=== PATIENT | female | born 1945 | race Caucasian/White ===

== ENCOUNTER → 2016-07-16 | Outpatient (CLI) | payer MEDICARE ==
--- NOTE | 2016-07-16 14:07 | REPMRS ---
Patient History The patient states she had a clinical breast exam in Patient is postmenopausal, has history of breast cancer at age 69, has history of other cancer at age 60, and had first child at age 33. Family history of breast cancer in maternal aunt at age 50 or over and colorectal cancer in maternal uncle at age 50 or over. Malignant radio exam breast specimen, June 17, 2015. Malignant localization of breast nodule of the right breast, June 17, 2015. Benign excisional biopsy of the left breast, 2002. Benign excisional biopsy of the left breast, 1965. Benign excisional biopsy of the right breast, 1964. Digital Woman Screen Mammo: July 16, 2016 - Exam #: [id number] Bilateral CC and MLO view(s) were taken. Technologist: Jennifer Bernard, Technologist Prior study comparison: December 16, 2015, right breast digital mammo diagnostic unilateral, performed at [facility]. May 10, 2015, right breast digital mammo diagnostic unilateral, performed at [facility]. May 07, 2015, digital woman screen mammo performed at [facility]. FINDINGS: There are scattered fibroglandular densities. There has been no change in the appearance of the mammogram from the prior studies. There are stable post treatment changes in the right breast..The spiculated density at the biopsy site in the upper outer quadrant of the right breast has decreased in the interval since the last right breast mammogram from December 16, 2015. There is a mild amount of scattered fibroglandular density which is fairly symmetric. There is no interval development of dominant mass, architectural distortion, or clustered microcalcification suggestive of malignancy. ASSESSMENT: BI-RADS/ACR category 1 mammogram. Negative. Recommendation Routine screening mammogram in 1 year (for women over age 40). This mammogram was interpreted with the aid of an FDA-approved computer-aided dectection system. Electronically Signed By: Luis Reynolds MD 07/16/16 0981
== END ==
LOC: M WHC 12:54
PROVIDERS: ATTEND Nurse Practitioner Family
DX: Z01.419 Encounter for gynecological examination (general) (routine) without abnormal findings (principal); Z12.31 Encounter for screening mammogram for malignant neoplasm of breast; Z78.0 Asymptomatic menopausal state; Z12.12 Encounter for screening for malignant neoplasm of rectum; Z85.3 Personal history of malignant neoplasm of breast
CPT/HCPCS: 82270; G0101; G0202

== ENCOUNTER → 2016-10-21 | Outpatient (CLI) | payer MEDICARE ==
--- NOTE | 2016-10-21 13:55 | RADONC ---
RADIATION ONCOLOGY FOLLOWUP NOTE DATE: 10/21/2016 CHART NUMBER: [id number] DIAGNOSIS: Right breast cancer. STAGE: IA, C2zA5T6. ECOG PERFORMANCE STATUS: 0 FOLLOWUP NOTE: Ms. 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 The patient presents today reporting that she is doing quite well with no complaints at this time related to her radiation therapy or disease. She has no breast or bone pain. REVIEW OF SYSTEMS: The patient's review of systems is noncontributory. She denies nausea, vomiting, fevers, chills, night sweats, diplopia, headaches, anxiety or depression, anorexia, weight loss, visual disturbances, chest pain, urinary or bowel difficulties, bone pain, or neurological problems. PHYSICAL EXAMINATION: The patient is a well-developed, well-nourished white female in no acute distress. HEENT exam is normocephalic, atraumatic. Extraocular movements are intact. There is no palpable cervical, supraclavicular, infraclavicular, axillary, or inguinal lymphadenopathy present. Lungs are clear to auscultation and percussion. Heart has a regular rate and rhythm. Abdomen is benign with no hepatosplenomegaly, masses, or tenderness. Breast examination reveals no masses or discharge bilaterally. Skeletal examination reveals no tenderness to pressure or percussion of the bony skeleton. Extremities reveal no clubbing, cyanosis, or edema. Neurologic exam is grossly intact, as is the remainder of the physical examination. ASSESSMENT: The patient is clinically NANCY at this time and will be seen by us again in 6 months for further followup. She will also continue be followed by her other physicians as well. cc: Jhon Sanderson MD *NOE Flores
== END ==
LOC: M ONCR 13:15
PROVIDERS: ATTEND Radiology Radiation Oncology
DX: C50.411 Malignant neoplasm of upper-outer quadrant of right female breast (principal)

== ENCOUNTER → 2017-04-21 | Outpatient (CLI) | payer MEDICARE ==
--- NOTE | 2017-04-23 06:40 | RADONC ---
RADIATION ONCOLOGY FOLLOWUP NOTE DATE: 04/21/2017 CHART NUMBER: [id number] DIAGNOSIS: Right breast cancer. STAGE: I A, TcN0M0. ECOG PERFORMANCE STATUS: 0. FOLLOWUP NOTE: Ms. 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 The patient presents today reporting that she is doing quite well with no complaints at this time related to her radiation therapy or disease. She has no breast or bone pain. REVIEW OF SYSTEMS: The patient's review of systems is noncontributory. Denies nausea, vomiting, fevers, chills, night sweats, diplopia, headaches, anxiety or depression, anorexia, weight loss, visual disturbances, chest pain, urinary or bowel difficulties, bone pain, or neurological problems. PHYSICAL EXAMINATION: The patient is a well-developed, well-nourished, 71-year-old female in no acute distress. HEENT exam is normocephalic, atraumatic. Extraocular movements are intact. There is no palpable cervical, supraclavicular, infraclavicular, axillary, or inguinal lymphadenopathy present. Lungs are clear to auscultation and percussion. Heart has a regular rate and rhythm. Abdomen is benign with no hepatosplenomegaly, masses, or tenderness. Breast examination reveals no masses or discharge bilaterally. Skeletal examination reveals no tenderness to pressure or percussion of the bony skeleton. Extremities reveal no clubbing, cyanosis, or edema. Neurologic exam is grossly intact, as is the remainder of the physical examination. ASSESSMENT: The patient is clinically NANCY at this time and will be seen by us again in 6 months for further followup. She will also continue be followed by her other physicians as well. cc: Shonda Sanderson MD
== END ==
LOC: M ONCR 12:54
PROVIDERS: ATTEND Radiology Radiation Oncology
DX: C50.411 Malignant neoplasm of upper-outer quadrant of right female breast (principal)

== ENCOUNTER → 2017-08-26 | Outpatient (CLI) | payer MEDICARE | LOC: M WHC 10:29 | DX: Z12.31 Encounter for screening mammogram for malignant neoplasm of breast (principal); Z01.419 Encounter for gynecological examination (general) (routine) without abnormal findings (principal); Z78.0 Asymptomatic menopausal state; Z85.3 Personal history of malignant neoplasm of breast; Z12.12 Encounter for screening for malignant neoplasm of rectum; Z98.890 Other specified postprocedural states | CPT/HCPCS: 77067 ==

== ENCOUNTER → 2017-09-22 | Outpatient (CLI) | payer MEDICARE | LOC: M ONCR 14:31 | DX: C50.411 Malignant neoplasm of upper-outer quadrant of right female breast (principal) | CPT/HCPCS: G0463 ==

== ENCOUNTER → 2018-03-16 | Outpatient (CLI) | payer MEDICARE | LOC: M ONCR 12:49 | DX: C50.911 Malignant neoplasm of unspecified site of right female breast (principal) | CPT/HCPCS: G0463 ==

== ENCOUNTER 2018-03-28 09:58 | Day surgery (SDC) | payer MEDICARE ==
[~2018-03-28 09:58] MED LIST: LIDOCAINE 2% INJ 100 MG/5 ML SDV (FOR ANES.) As Ordered; NS 1,000 ML IV; PROPOFOL 200 MG/20 ML VIAL As Ordered
== END 2018-03-28 12:51 | disposition home or self-care (01) ==
LOC: M OPP 09:58
DX: Z12.11 Encounter for screening for malignant neoplasm of colon (principal); K55.20 Angiodysplasia of colon without hemorrhage; K64.0 First degree hemorrhoids; K57.30 Diverticulosis of large intestine without perforation or abscess without bleeding; R13.10 Dysphagia, unspecified; R12 Heartburn; K22.2 Esophageal obstruction; K44.9 Diaphragmatic hernia without obstruction or gangrene; R00.8 Other abnormalities of heart beat; I10 Essential (primary) hypertension; E78.5 Hyperlipidemia, unspecified; K21.9 Gastro-esophageal reflux disease without esophagitis; M19.90 Unspecified osteoarthritis, unspecified site; Z85.828 Personal history of other malignant neoplasm of skin; Z92.21 Personal history of antineoplastic chemotherapy; F32.9 Major depressive disorder, single episode, unspecified; Z78.0 Asymptomatic menopausal state; Z92.3 Personal history of irradiation; Z85.3 Personal history of malignant neoplasm of breast; Z87.442 Personal history of urinary calculi; Z88.1 Allergy status to other antibiotic agents; Z88.5 Allergy status to narcotic agent; Z79.82 Long term (current) use of aspirin; Z79.899 Other long term (current) drug therapy
CPT/HCPCS: G0121

== ENCOUNTER → 2018-09-21 | Outpatient (CLI) | payer MEDICARE ==
[~2018-09-21] MED LIST changes: +ALEV220T26 PO; +ALLE180T33 PO; +ASPI81TA26 PO; +EYESOL4 OU; +FLUTISP; +LETR2.5T2 PO; -LIDOCAINE 2% INJ 100 MG/5 ML SDV (FOR ANES.) As Ordered; +MELA10CA PO; +MULT1TAB10 PO; -NS 1,000 ML IV; +PRIL20TA2 PO; -PROPOFOL 200 MG/20 ML VIAL As Ordered; +SERT-141 PO; +SIMV40TA2 PO; +SYST1SOL OU; +TOLT2TAB12 PO; +VENTAER INH; +VERA180T3 PO
--- NOTE | 2018-09-22 07:28 | RADONC ---
RADIATION ONCOLOGY FOLLOWUP NOTE: DATE: 09/21/2018 CHART NUMBER: [id number]. DIAGNOSIS: Right breast cancer. STAGE: I A, T1c N0 M0. ECOG PERFORMANCE STATUS: 0 The patient is a ramandeep 72-year-old female who has a diagnosis of stage I A, T1c N0 M0, moderately to well differentiated infiltrating ductal carcinoma involving the right breast and presents today for a routine followup visit 3 years following external beam radiotherapy. REVIEW OF SYSTEMS: The patient is doing well and has no complaints referable to her disease or to her treatments. She specifically denies any nausea, vomiting, coughing, sputum production or hemoptysis. Her energy level is excellent. She is able to maintain most for day-to-day activities without any alteration of her lifestyle. She also denies fevers, chills, night sweats, diplopia, headaches, anxiety, depression, anorexia, weight loss, visual disturbances, chest pain, urinary or bowel problems, bone pain or neurologic issues. Physical examination reveals a well-nourished 72-year-old female in no acute distress. HEENT: Normocephalic. EOMs intact. PERRLA. Fundi benign. LYMPHATICS: No palpable peripheral lymphadenopathy is appreciated. LUNGS: Lungs are clear to auscultation and percussion. HEART: Regular without murmurs. ABDOMEN: Without evidence of hepatomegaly, masses, deep abdominal tenderness. BREASTS: Examination reveals no masses or discharges bilaterally. MUSCULOSKELETAL: Skeletal system reveals no evidence of percussive bony tenderness. EXTREMITIES: Without cyanosis, clubbing or edema. NEUROLOGIC: Examination grossly physiologic and nonfocal. IMPRESSION: The patient is clinically NANCY at this time and we will see her again in approximately 6 months or p.r.n. for further followup. She was also advised to return to her referring physicians as per their directions and instructions. Thank you for allowing us the opportunity of participation in the joint followup care of this very ramandeep patient. Most sincerely, cc: Shonda Sanderson MD
== END ==
LOC: M ONCR 12:55
PROVIDERS: ATTEND Radiology Radiation Oncology
DX: Z08 Encounter for follow-up examination after completed treatment for malignant neoplasm (principal); Z92.3 Personal history of irradiation; Z85.3 Personal history of malignant neoplasm of breast

== ENCOUNTER → 2018-09-28 | Outpatient (CLI) | payer MEDICARE ==
--- NOTE | 2018-09-28 12:02 | REPMRS ---
Patient History The patient states she had a clinical breast exam in September 2018. Family history of colorectal cancer at age 50 or over in maternal uncle, breast cancer at age 50 or over in maternal aunt. Malignant radio exam breast specimen, June 17, 2015. Malignant localization of breast nodule of the right breast, June 17, 2015. Benign excisional biopsy of the left breast, 2002. Benign excisional biopsy of the left breast, 1964. Benign excisional biopsy of the right breast, 1963. 3D TOMOSYNTHESIS WAS PERFORMED. Digital Mammo Screening Bilat: September 28, 2018 - Exam #: [id number] Bilateral CC and MLO view(s) were taken. Technologist: Teresita Pink, Technologist Prior study comparison: August 26, 2017, digital woman screen mammo, performed at [facility]. July 16, 2016, digital woman screen mammo, performed at [facility]. FINDINGS: The breast tissue is heterogeneously dense. This may lower the sensitivity of mammography. There is no evidence of cancer on this mammogram. No significant changes when compared with prior studies. Assessment: BI-RADS/ACR category 2 mammogram. Benign Findings. Recommendation Routine screening mammogram of both breasts in 1 year (for women over age 40). This mammogram was interpreted with the aid of an FDA-approved computer-aided dectection system. Electronically Signed By: Eric Gonzalez MD 09/28/18 0546
== END ==
LOC: M RAD 11:04
PROVIDERS: ATTEND Radiology Radiation Oncology
DX: Z12.31 Encounter for screening mammogram for malignant neoplasm of breast (principal); Z85.3 Personal history of malignant neoplasm of breast

== ENCOUNTER → 2019-03-29 | Outpatient (CLI) | payer MEDICARE ==
--- NOTE | 2019-03-30 09:35 | RADONC ---
RADIATION ONCOLOGY FOLLOWUP NOTE DATE: 03/29/2019 CHART NUMBER: [id number] DIAGNOSIS: Right breast cancer. ECOG PERFORMANCE STATUS: 0 FOLLOWUP NOTE: Mrs. Olivarez is a 72-year-old female with a diagnosis of stage I A, [id number], moderately to well differentiated infiltrating ductal carcinoma involving the right breast and she presents today for routine followup visit 3-1/2 years following her external beam radiotherapy. REVIEW OF SYSTEMS: She has no complaints referable to her disease or to her treatments, and specifically denies any nausea, vomiting, coughing, sputum production or hemoptysis. Her energy level is such that she is able to maintain most of her for day-to-day activities without any alteration of her lifestyle and she does not complain of any bone pain. She also denies fevers, chills, night sweats, diplopia, headaches, anxiety, depression, anorexia, weight loss, visual disturbances or other neurologic issues. PHYSICAL EXAMINATION: Reveals a well-nourished 72-year-old in no acute distress. HEENT: Normocephalic. EOMs intact. PERRLA. Fundi benign. Lymphatics: No palpable peripheral lymphadenopathy is appreciated. Lungs are clear to auscultation and percussion. Heart: Regular without murmurs. Abdomen: Without evidence of hepatomegaly, masses or deep abdominal tenderness. Extremities: Without cyanosis, clubbing or edema. Neurologic: Examination grossly physiologic and nonfocal. IMPRESSION: The patient is clinically NANCY and we would like to have her to return to our clinic in 6 months or p.r.n. Her most recent mammogram obtained showed no evidence of recurrence and we have asked her to obtain a mammogram prior to her next visit in this clinic. Thank you for allowing us the opportunity of participation in the management of this very ramandeep patient. cc: Shonda Sanderson MD [facility]
== END ==
LOC: M ONCR 12:53
PROVIDERS: ATTEND Radiology Radiation Oncology
DX: Z85.3 Personal history of malignant neoplasm of breast (principal); Z92.3 Personal history of irradiation

== ENCOUNTER → 2019-10-02 | Outpatient (CLI) | payer MEDICARE ==
[~2019-10-02] MED LIST changes: -SIMV40TA2 PO; +SIMV40TA20 PO
--- NOTE | 2019-10-02 11:29 | REPMRS ---
Patient History The patient states she had a clinical breast exam in March 2019. Family history of colorectal cancer at age 50 or over in maternal uncle, breast cancer at age 50 or over in maternal aunt. Malignant radio exam breast specimen, June 17, 2015. Malignant localization of breast nodule of the right breast, June 17, 2015. Benign excisional biopsy of the left breast, 2002. Benign excisional biopsy of the left breast, 1965. Benign excisional biopsy of the right breast, 1963. Digital Woman Screen Mammo: October 02, 2019 - Exam #: [id number] Bilateral CC and MLO view(s) were taken. Technologist: Noemí Dugan, Technologist Prior study comparison: September 28, 2018, bilateral digital mammo screening bilat, performed at [facility]. August 26, 2017, digital woman screen mammo performed at [facility]. July 16, 2016, digital woman screen mammo performed at [facility]. FINDINGS: There are scattered fibroglandular densities. There is a stable spiculated density in the upper outer quadrant on the right representing post-treatment changes. There has been no change in the appearance of the mammogram from the prior studies. There is a mild amount of scattered fibroglandular density which is fairly symmetric. There is no interval development of dominant mass, architectural distortion, or grouped microcalcification suggestive of malignancy. 3-D tomosynthesis shows no additional findings. Assessment: BI-RADS/ACR category 2 mammogram. Benign Findings. Recommendation Routine screening mammogram of both breasts in 1 year (for women over age 40). This mammogram was interpreted with the aid of an FDA-approved computer-aided dectection system. Electronically Signed By: Luis Reynolds MD 10/02/19 1129
== END ==
LOC: M WHC 09:55
PROVIDERS: ATTEND Nurse Practitioner Family
DX: Z12.31 Encounter for screening mammogram for malignant neoplasm of breast (principal)

== ENCOUNTER → 2019-10-11 | Outpatient (CLI) | payer MEDICARE ==
--- NOTE | 2019-10-14 15:48 | RADONC ---
RADIATION ONCOLOGY FOLLOWUP NOTE DATE: 10/11/2019 This is a telemedicine visit. The patient was informed of the risks including security breech, technological failure, inability to perform a comprehensive physical exam which could delay or prevent an accurate diagnosis, and potential complications from treatment decisions rendered over a telemedicine platform. The patient understands and consented to the use of telehealth services phone only. CHART NUMBER: [id number] DIAGNOSIS: Right breast cancer. STAGE: I A, T1c, N0, M0. ECOG PERFORMANCE STATUS: 0 FOLLOWUP NOTE: Ms. 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 The patient presents today by telephone reporting that she is doing quite well with no complaints at this time related to her radiation therapy or disease. She has no breast or bone pain. REVIEW OF SYSTEMS: The patient's review of systems is noncontributory. Denies nausea, vomiting, fevers, chills, night sweats, diplopia, headaches, anxiety or depression, anorexia, weight loss, visual disturbances, chest pain, urinary or bowel difficulties, bone pain, or neurological problems. PHYSICAL EXAMINATION: Physical examination was deferred as per COVID-19 precautions. This was a telephone consultation. ASSESSMENT: The patient is clinically stable at this time and will be seen by us again in 6 months for further followup. She will be seen by my replacing physician Dr. Wells. In the meantime, she will continue followup with doctor Jhon Sanderson MD and Shonda Viera NP.
== END ==
LOC: M ONCR 13:06
PROVIDERS: ATTEND Radiology Radiation Oncology
DX: C50.411 Malignant neoplasm of upper-outer quadrant of right female breast (principal)

== ENCOUNTER → 2020-04-24 | Outpatient (CLI) | payer MEDICARE ==
--- NOTE | 2020-04-24 13:22 | RADONC ---
Radiation Oncology Hx/FUP Radiation Oncology Hx/FUP Date of Service: Apr 24, 2020 Pt Identifier Tiny Olivarez is a 74 year old female seen for a followup visit today at the department of radiation oncology for a history of right breast cancer pT1cN0(sn)M0 ER/WI+ HER2- Grade 2 IDC. She underwent lumpectomy and SLNB and completed adjuvant RT 48.6 Gy to the right whole breast and 12 Gy in 6 fractions to the tumor bed on 09/23/15. She continues on letrozole. Diagnosis/Treatment History Interval History Feels entirely well. No complaints. No AI side effects. No pain in the breasts, no concerning skin changes. Minimal RUE edema. Has a compression sleeve she wears on long trips, but not bothered regularly by swelling. She is compliant with mammograms. Has them regularly. She does not do self exams. Current Therapy Letrozole Stage Stage IA pT1cN0(sn)M0 ER/WI+ HER2- Grade 2 IDC right breast Social History: Non-smoker Non-drinker Allergies / Meds Allergies: Coded Allergies: bacitracin (Verified Allergy, Intermediate, Eyes Red and Itching, 09/09/18) neomycin (Verified Allergy, Intermediate, Eyes Red and Itching, 09/09/18) polymyxin B (Verified Allergy, Intermediate, Eyes Red and Itching, 09/09/18) meperidine (Verified Adverse Reaction, Unknown, Vomiting, 09/09/18) Home Meds Reported Medications Albuterol Sulfate (Ventolin Hfa) 108 Mcg/Act Aer, 108 MCG INH PRN PRN for WHEEZING 03/21/18 Propylene Glycol/Peg 400 (Systane 0.3-0.4% Eye Drops) 15 Ml Mar, 1 DROP OU BID, BOTTLE 03/21/18 Naphazoline HCl/Pheniramine (Eye Allergy Relief Drops) 1 Mar Mar, 2 DROP OU BID, MAR 03/21/18 Fexofenadine HCl ([facility]) 180 Mg Tab, 180 MG PO DAILY, TAB 03/21/18 Omeprazole Magnesium (Prilosec Otc) 20 Mg Tab, 20 MG PO DAILY, TAB 03/21/18 Multivitamins (Multivitamin Adults) 1 Tab Tab, 1 TAB PO DAILY, TAB 03/21/18 Melatonin (Melatonin) 10 Mg Cap, 10 MG PO QHS, CAP 03/21/18 Naproxen Sodium (Aleve) 220 Mg Tab, 440 MG PO BID, TAB 03/21/18 Aspirin (Aspirin EC) 81 Mg Tab, 81 MG PO DAILY, #30 TAB 03/21/18 Sertraline Hcl (Sertraline HCl) 50 Mg Tab, 50 MG PO DAILY, TAB 03/21/18 Fluticasone Propionate (Fluticasone Propionate) 50 Mcg/Act Spr, 1 SPRAY NA BIDP, #1 BOTTLE 03/21/18 Simvastatin (Simvastatin) 40 Mg Tab, 40 MG PO DAILY, TAB 03/21/18 Verapamil HCl (Verapamil ER) 180 Mg Tab, 180 MG PO DAILY, TAB 03/21/18 Tolterodine Tartrate (Tolterodine Tartrate) 2 Mg Tab, 2 MG PO BID, TAB 03/21/18 Letrozole (Letrozole) 2.5 Mg Tab, 2.5 MG PO DAILY, TAB 03/21/18 Review of Systems Review of Systems Constitutional: Denies: ROS Unabtainable, Chills, Fever, Malaise, Night Sweats, Weakness, Fatigue, Weight Loss, Lethargy, Normal appetite, Other symptoms Eyes: Denies: Pain, Vision change, Conjunctivae inflammation, Eyelid inflammation, Redness, Other HEENT: Denies: Head Aches, Ear Pain, Dysphagia, Sinus Congestion, Post Nasal Drip, Sore Throat, Epistaxis, Other Symptoms Skin: Denies: Rash, Lesions, Jaundice, Bruising, Other Breast: Denies: New Breast Lumps / Masses, Nipple Retraction, Nipple Discharge, Breast Skin Changes, Breast Pain or Tenderness, Other Breast Complaints Pulmonary: Denies: Dyspnea, Cough, Pleuritic Chest Pain, Other Symptoms Cardiovascular: Denies: Chest Pain, Palpitations, Orthopnea, Paroxysmal Noc. Dyspnea, Edema, Lt Headedness, Other Symptoms Gastrointestinal: Denies: Nausea, Vomiting, Abdominal Pain, Diarrhea, Constipation, Melena, Hematochezia, Other Symptoms Genitourinary: Denies: Dysuria, Frequency, Incontinence, Hematuria, Retention, Other Symptoms Hematologic: Denies: Bruising, Bleeding Excessively, Petecchia, Purpura, Enlarged Lymph Nodes, Other Hematologic Endocrine: Denies: Polydipsia, Polyphagia, Polyuria, Heat Intolerance, Cold Intolerance, Other Endocrine Sx Musculoskeletal: Denies: Neck pain, Shoulder pain, Arm pain, Back pain, Hand pain, Leg pain, Foot pain, Joint pain, Muscle pain, Spasms, Gout, Joint sweling, Muscle stiffness, Midthoracic pain, Other Neurological: Denies: Weakness, Numbness, Incoordination, Change in Speech, Confusion, Seizures, Other Symptoms Psych: Reports: Mood Normal; Denies: Anxiety, Depression, Memory Issues, Thoughts of Self Harm, Anger, Thoughts of harming Other, Other Psych Physical Examination Vital Signs Wt 223 T 98.3 P 98 RR 18 Pain 0 Fatigue 0 General Exam: Positive: Alert, Cooperative, No Acute Distress Eye Exam: Positive: PERRLA, EOMI ENT EXAM: Positive: Atraumatic, Pharynx Normal Neck Exam: Positive: Supple; Negative: Lymphadenopathy Chest Exam: Positive: Clear to auscultation, Normal air movement Heart Exam: Positive: Rate Normal, Regular Rhythm Breast Exam: Positive: Symmetric Bilaterally (Ptotic); Negative: Lumps or Masses, Nipple Retraction, Nipple Discharge, Skin Changes, Other Breast Findings (No axilllary adenopathy BL. No UE edema) Abdomen Exam: Positive: Soft; Negative: Tenderness Extremity Exam: Negative: Edema Skin Exam: Positive: Nl turgor and temperature Neuro Exam: Positive: Normal Gait, Normal Speech, Cranial Nerves 3-12 NL Psych Exam: Positive: Mental status NL, Mood NL Diagnostic and Laboratory Diagnostic Review Radiologic images, relevant labs and pathology reports were personally reviewed and discussed with Ms. Olivarez. Assessment and Plan Impression Assessment Ms. Olivarez is a 74 year old female with a history of right breast cancer pT1cN0(sn)M0 ER/WI+ HER2- Grade 2 IDC. She underwent lumpectomy and SLNB and completed adjuvant RT 48.6 Gy to the right whole breast and 12 Gy in 6 fractions to the tumor bed on 09/23/15. She continues on letrozole. She is doing well without evidence of recurrence on exam today. She is tolerating letrozole without side effects and is having her mammograms done. I will see her again in 12 months, at which point she will be 5 years out from treatment and we can consider releasing her from scheduled follow up as long as she has annual breast exams. Performance Status ECOG 0 Plan Follow up in 12 months Ms. Olivarez was encouraged to call with questions or concerns in the interim period. LYNN PINEDA MD Apr 24, 2020 13:22
== END ==
LOC: M ONCR 10:08
PROVIDERS: ATTEND General Practice
DX: Z85.3 Personal history of malignant neoplasm of breast (principal); Z92.3 Personal history of irradiation

== ENCOUNTER → 2020-05-01 | Outpatient (CLI) | payer SELFPAY | LOC: M LABSMTC 14:31 | PROVIDERS: ATTEND Pediatrics | DX: Z20.828 Contact with and (suspected) exposure to other viral communicable diseases (principal) ==

== ENCOUNTER → 2020-10-15 | Outpatient (CLI) | payer MEDICARE ==
--- NOTE | 2020-10-15 12:53 | REPMRS ---
Patient History The patient states she has not had a clinical breast exam in over a year. Family history of colorectal cancer at age 50 or over in maternal uncle, breast cancer at age 50 or over in maternal aunt. Malignant radio exam breast specimen, June 17, 2015. Malignant localization of breast nodule of the right breast, June 17, 2015. Benign excisional biopsy of the left breast, 2002. Benign excisional biopsy of the left breast, 1965. Benign excisional biopsy of the right breast, 1964. Patient states no breast complaints today. Patient has signed MRS History Sheet. Digital Woman Screen Mammo: October 15, 2020 - Exam #: [id number] Bilateral CC and MLO view(s) were taken. Technologist: Lola Moreno, [employer] Prior study comparison: October 02, 2019, bilateral digital woman screen mammo performed at [facility]. September 28, 2018, bilateral digital mammo screening bilat, performed at [facility]. Screening. This patient?s lifetime risk for the development of invasive breast cancer can?t be calculated due to her age (less than 20 or greater than 85 years) or a prior history of in situ or invasive breast cancer. Digital screening (2D) mammography was performed bilaterally. Additionally, breast tomosynthesis (3D mammography) was performed bilaterally in the CC and MLO projections. Today's exam was compared to the prior exams. By history, the patient has no complaints of a palpable breast abnormality or other significant breast complaints. The patient is status post lumpectomy/ radiation therapy due to breast carcinoma. The breasts are unchanged in size and shape. There are no james-areas of internal architectural distortion. There are no james-soft tissue densities or areas of spiculation. There is unchanged post radiation skin thickening. IMPRESSION: BI-RADS Category 2- Benign Findings. There is no evidence of malignant alteration of the breasts. Routine bilateral screening mammogram recommended at its regularly scheduled annual interval. The Volpara volumetric breast density category is B, there are scattered areas of fibroglandular density. This mammogram was read with the assistance of Medivo,an FDA approved computer aided detection system for mammography. Negative x-ray reports should not delay surgical consultation if a dominant or clinically suspicious mass is present. Not all breast cancers can be identified by mammography. Therefore, we recommend that you continue to perform regular breast self-examination and physical examination and then promptly contact your physician of any concerns or changes. Adenosis and dense breasts may obscure an underlying neoplasm. Assessment: BI-RADS/ACR category 2 mammogram. Benign Findings. Recommendation Routine screening mammogram of both breasts in 1 year. Electronically Signed By: Augustus Oliva DO 10/15/20 1208
== END ==
LOC: M WHC 11:45
PROVIDERS: ATTEND Family Medicine
DX: Z12.31 Encounter for screening mammogram for malignant neoplasm of breast (principal); Z85.3 Personal history of malignant neoplasm of breast; Z86.018 Personal history of other benign neoplasm

== ENCOUNTER → 2020-10-30 | Outpatient (CLI) | payer MEDICARE ==
--- NOTE | 2020-10-30 12:37 | DEXAMM ---
INDICATION: M85.80 [facility] DISR OF BONE DENSITY AND STRUCTURE. COMPARISON: Comparison studies are dated December 16, 2015, January 13, 2011, October 13, 2004, and June 02, 2000.. TECHNIQUE: Bone density was measured using dual-energy x-ray absorptionmetry (DEXA). FINDINGS: AP SPINE L1-L4 BMD 1.042 g/cm2 Young Adult T-Score -1.2 Age Matched Z-Score 0.5. LT FEMUR, TOTAL BMD 0.945 g/cm2 Young Adult T-Score -0.5 Age Matched Z-Score 1.2. LT NECK BMD 0.858 g/cm2 Young Adult T-Score -1.3 Age Matched Z-Score 0.6. RT FEMUR, TOTAL BMD 0.948 g/cm2 Young Adult T-Score -0.5 Age Matched Z-Score 1.3. RT NECK BMD 0.827 g/cm2 Young Adult T-Score -1.5 Age Matched Z-Score 0.4. IMPRESSION: There is low bone density of the spine. There is low bone density of the left hip. There is low bone density of the right hip. The density of the spine has decreased 14.5% since the initial exam on June 02, 2000. The density of the spine decreased 12.3% since most recent exam on December 16, 2015. The density of the left hip has decreased 22.7% since initial exam on June 02, 2000. The density of the left hip has decreased 13.5% since most recent exam on December 16, 2015. The density of the right hip has decreased 20.7% since the initial exam on June 02, 2000. The density of the right hip has decreased 10.4% since the most recent exam on December 16, 2015. FOLLOW-UP: Recommendation for the next bone density exam: 2 years. <Electronically signed by Luis Reynolds > 10/30/20 [id number]
== END ==
LOC: M WHC 10:40
PROVIDERS: ATTEND Family Medicine
DX: M85.851 Other specified disorders of bone density and structure, right thigh (principal); M85.852 Other specified disorders of bone density and structure, left thigh; M85.88 Other specified disorders of bone density and structure, other site

== ENCOUNTER → 2021-03-26 | Outpatient (CLI) | payer MEDICARE ==
[~2021-03-26] MED LIST changes: -VERA180T3 PO; +VERA180T42 PO
== END ==
LOC: M PLALAB 09:47
PROVIDERS: ATTEND Surgery
DX: Z12.89 Encounter for screening for malignant neoplasm of other sites (principal)

== ENCOUNTER → 2021-04-23 | Outpatient (CLI) | payer MEDICARE ==
[~2021-04-23] MED LIST changes: +CELE1CAP9
--- NOTE | 2021-04-23 11:17 | RADONC ---
Radiation Oncology Hx/FUP Radiation Oncology Hx/FUP Date of Service: Apr 23, 2021 Pt Identifier Tiny Olivarez is a 75 year old female seen for a followup visit today at the department of radiation oncology for a history of right breast cancer pT1cN0(sn)M0 ER/MD+ HER2- Grade 2 IDC. She underwent lumpectomy and SLNB and completed adjuvant RT 48.6 Gy to the right whole breast and 12 Gy in 6 fractions to the tumor bed on 09/23/15. She continues on letrozole. Diagnosis/Treatment History Oncologic History As above Interval History No complaints or concerns, has re-established with Dr. Pierson to manage letrozole. Saw Dr. Dumont as well. Happy with this level of follow up. No bothersome RUE swelling or pain. No skin concerns. Current Therapy Letrozole Stage Stage IA pT1cN0(sn)M0 ER/MD+ HER2- Grade 2 IDC right breast Social History: Non-smoker Non-drinker Allergies / Meds Allergies: Coded Allergies: bacitracin (Verified Allergy, Intermediate, Eyes Red and Itching, 09/09/18) neomycin (Verified Allergy, Intermediate, Eyes Red and Itching, 09/09/18) polymyxin B (Verified Allergy, Intermediate, Eyes Red and Itching, 09/09/18) meperidine (Verified Adverse Reaction, Unknown, Vomiting, 09/09/18) Home Meds Active Scripts Letrozole (Letrozole) 2.5 Mg Tab, 2.5 MG PO DAILY for 90 Days, #90 TAB 3 Refills Prov:REJI PIERSON MD 04/17/21 Reported Medications Celecoxib (Celecoxib) 200 Mg Capsule 04/17/21 Albuterol Sulfate (Ventolin Hfa) 108 Mcg/Act Aer, 108 MCG INH PRN PRN for WHEEZING 03/21/18 Propylene Glycol/Peg 400 (Systane 0.3-0.4% Eye Drops) 15 Ml Mar, 1 DROP OU BID, BOTTLE 03/21/18 Naphazoline HCl/Pheniramine (Eye Allergy Relief Drops) 1 Mar Mar, 2 DROP OU BID, MAR 03/21/18 Fexofenadine HCl ([facility] Allergy) 180 Mg Tab, 180 MG PO DAILY, TAB 03/21/18 Omeprazole Magnesium (Prilosec Otc) 20 Mg Tab, 20 MG PO DAILY, TAB 03/21/18 Multivitamins (Multivitamin Adults) 1 Tab Tab, 1 TAB PO DAILY, TAB 03/21/18 Aspirin (Aspirin EC) 81 Mg Tab, 81 MG PO DAILY, #30 TAB 03/21/18 Sertraline Hcl (Sertraline HCl) 50 Mg Tab, 50 MG PO DAILY, TAB 03/21/18 Fluticasone Propionate (Fluticasone Propionate) 50 Mcg/Act Spr, 1 SPRAY NA BIDP, #1 BOTTLE 03/21/18 Simvastatin (Simvastatin) 40 Mg Tab, 40 MG PO DAILY, TAB 03/21/18 Verapamil HCl (Verapamil ER) 180 Mg Tab, 180 MG PO DAILY, TAB 03/21/18 Tolterodine Tartrate (Tolterodine Tartrate) 2 Mg Tab, 2 MG PO BID, TAB 03/21/18 Discontinued Reported Medications Melatonin (Melatonin) 10 Mg Cap, 10 MG PO QHS, CAP 03/21/18 Naproxen Sodium (Aleve) 220 Mg Tab, 440 MG PO BID, TAB 03/21/18 Review of Systems Review of Systems Constitutional: Denies: Fatigue Breast: Denies: New Breast Lumps / Masses, Nipple Retraction, Nipple Discharge, Breast Skin Changes, Breast Pain or Tenderness Musculoskeletal: Denies: Arm pain Neurological: Denies: Weakness, Numbness Psych: Reports: Mood Normal Physical Examination Vital Signs Wt 213 lbs P 100 RR 18 BP 143/86 O2 97% Pain 0 Fatigue 0 General Exam: Alert, Cooperative, No Acute Distress Eye Exam: PERRLA, EOMI ENT EXAM: Atraumatic Neck Exam: Supple; Negative: Lymphadenopathy Breast Exam: Symmetric Bilaterally; Negative: Lumps or Masses, Nipple Retraction, Nipple Discharge, Skin Changes, Other Breast Findings Extremity Exam: Negative: Edema Skin Exam: Nl turgor and temperature Neuro Exam: Normal Gait, Normal Speech, Cranial Nerves 3-12 NL Psych Exam: Mental status NL Diagnostic and Laboratory Diagnostic Review Radiologic images, relevant labs and pathology reports were personally reviewed and discussed with Ms. Olivarez. Assessment and Plan Impression Assessment Ms. Olivarez is a 75 year old female with a history of right breast cancer pT1cN0(sn)M0 ER/MD+ HER2- Grade 2 IDC. She underwent lumpectomy and SLNB and completed adjuvant RT 48.6 Gy to the right whole breast and 12 Gy in 6 fractions to the tumor bed on 09/23/15. She continues on letrozole. She is nearly 5 years removed from primary treatment, she continues on letrozole with no ill effects. Given that she has close medical oncology and mammographic follow up we discussed that she can follow up with me as needed. Performance Status ECOG 0 Plan Follow up PRN Ms. Olivarez was encouraged to call with questions or concerns in the interim period. Billing Statement Total time of [20] minutes was spent preparing for the visit [1], obtaining HPI [4], examining the patient [4], reviewing diagnostic tests [1], discussing management options [4], coordinating care [0], and writing this note [6]. LYNN PINEDA MD Apr 23, 2021 11:17
== END ==
LOC: M ONCR 09:33
PROVIDERS: ATTEND General Practice
DX: C50.411 Malignant neoplasm of upper-outer quadrant of right female breast (principal); Z92.3 Personal history of irradiation; Z88.8 Allergy status to other drugs, medicaments and biological substances; Z79.899 Other long term (current) drug therapy

== ENCOUNTER → 2021-10-16 | Outpatient (CLI) | payer MEDICARE | LOC: M WHC 10:22 | PROVIDERS: ATTEND Advanced Practice Midwife | DX: Z12.31 Encounter for screening mammogram for malignant neoplasm of breast (principal); Z78.0 Asymptomatic menopausal state; Z79.811 Long term (current) use of aromatase inhibitors ==

== ENCOUNTER → 2022-03-20 | Outpatient (CLI) | payer MEDICARE ==
[~2022-03-20] MED LIST changes: +NOXI1TAB PO; +VITA250T4 PO
[2022-03-20 09:18] LABS: HEMATOCRIT 44.4 % (36.0-47.0); HEMOGLOBIN 14.5 g/dl (12.0-15.5); MEAN CORPUSCULAR HEMOGLOBIN 29.4 pg (27.0-33.0); MEAN CORPUSCULAR HGB CONC 32.7 g/dl (32.0-36.5); MEAN CORPUSCULAR VOLUME 89.9 fl (80.0-96.0); PLATELET COUNT, AUTOMATED 280 10^3/uL (150-450); RED BLOOD COUNT 4.94 10^6/uL (4.00-5.40); WHITE BLOOD COUNT 7.2 10^3/uL (4.0-10.0)
[2022-03-20 09:28] LABS: INR 0.94; PROTHROMBIN TIME 12.8 SECONDS (12.5-14.5)
[2022-03-20 09:37] LABS: ERYTHROCYTE SEDIMENTATION RATE 20 mm/hr (0-30)
[2022-03-20 09:46] LABS: ALBUMIN 3.8 GM/DL (3.2-5.2); ALT/SGPT 38 U/L (12-78); BILIRUBIN,TOTAL 0.4 MG/DL (0.2-1.0); BLOOD UREA NITROGEN 18 MG/DL (7-18); CALCIUM LEVEL 9.1 MG/DL (8.8-10.2); CARBON DIOXIDE LEVEL 29 MEQ/L (21-32); CHLORIDE LEVEL 106 MEQ/L (98-107); GLOMERULAR FILTRATION RATE > 60.0 (>39); GLUCOSE, FASTING 115 MG/DL (70-100); SODIUM LEVEL 139 MEQ/L (136-145); TOTAL PROTEIN 7.1 GM/DL (6.4-8.2)
== END ==
LOC: M RAD 08:37
PROVIDERS: ATTEND Orthopaedic Surgery
DX: M17.11 Unilateral primary osteoarthritis, right knee (principal)

== ENCOUNTER → 2022-10-19 | Outpatient (CLI) | payer MEDICARE ==
[~2022-10-19] MED LIST changes: +FLUT50SP17; -FLUTISP
== END ==
LOC: M WHC 09:05
PROVIDERS: ATTEND Specialist
DX: Z12.31 Encounter for screening mammogram for malignant neoplasm of breast (principal); Z85.3 Personal history of malignant neoplasm of breast

== ENCOUNTER → 2022-10-23 | Outpatient (CLI) | payer MEDICARE | LOC: M WHC 08:55 | PROVIDERS: ATTEND Specialist | DX: M85.851 Other specified disorders of bone density and structure, right thigh (principal); M85.852 Other specified disorders of bone density and structure, left thigh; Z79.811 Long term (current) use of aromatase inhibitors ==

== ENCOUNTER → 2023-10-25 | Outpatient (CLI) | payer MEDICARE ==
[~2023-10-25] MED LIST changes: +ALLE1DRO2 OP; +CELE0.09; -CELE1CAP9; -FLUT50SP17; +FLUTISP; +VITA250T27 PO; -VITA250T4 PO; +ZOLO100T
== END ==
LOC: M WHC 12:40
PROVIDERS: ATTEND Nurse Practitioner Women's Health
DX: Z12.31 Encounter for screening mammogram for malignant neoplasm of breast (principal)

== ENCOUNTER → 2024-10-25 | Outpatient (CLI) | payer MEDICARE ==
[~2024-10-25] MED LIST changes: +ALPR0.25 PO; +CALCCAP4 PO; +MV-M1TAB13 PO; -ZOLO100T; +ZOLO100T PO
== END ==
LOC: M WHC 11:02
PROVIDERS: ATTEND Specialist
DX: Z12.31 Encounter for screening mammogram for malignant neoplasm of breast (principal); M81.0 Age-related osteoporosis without current pathological fracture